=== PATIENT | female | born 1990 | race Caucasian/White ===

== ENCOUNTER 2023-02-21 11:00 | Day surgery (SDC) | payer BC ==
[~2023-02-21] VITALS: Ht 165.1 cm; Wt 117.8 kg
[~2023-02-21 11:00] MED LIST: ELDE350C PO; FAMO40TA3 PO; LR 1,000 ML IV SCH; TRI-TAB16 PO; VIT1TAB.8 PO; ceFAZolin SOD 2 GM in IV 1 EA IV ONE
[2023-02-21] MEDS ORDERED: fentaNYL 100 MCG/2 ML INJECTION As Ordered ONE (11:12)
[2023-02-21] MEDS ORDERED: LIDOCAINE 2% 100MG/5ML SDV (FOR ANES.) As Ordered ONE (11:12)
[2023-02-21] MEDS ORDERED: propofoL 200 MG/20 ML VIAL As Ordered ONE (11:12)
[2023-02-21] MEDS ORDERED: KETOROLAC 60MG 2ML VIAL As Ordered ONE (11:12)
[2023-02-21] MEDS ORDERED: MIDAZOLAM INJ 2MG/2ML VIAL As Ordered ONE (11:13)
[2023-02-21] MEDS ORDERED: LIDOCAINE 2% MDV 20ML VIAL As Ordered ONE (13:24)
[2023-02-21] MEDS ORDERED: GENTAMICIN SULF 80MG/2ML VIAL As Ordered ONE (13:24)
[2023-02-21 15:33] VITALS: BP 133/78; TEMP 97.9; O2SAT 97
== END 2023-02-21 15:40 | disposition home or self-care (01) ==
LOC: M SDC 11:00
PROVIDERS: ATTEND Podiatrist
DX: S92.354A Nondisplaced fracture of fifth metatarsal bone, right foot, initial encounter for closed fracture (principal); F17.210 Nicotine dependence, cigarettes, uncomplicated; X58.XXXA Exposure to other specified factors, initial encounter; Y93.9 Activity, unspecified; Y92.9 Unspecified place or not applicable; K21.9 Gastro-esophageal reflux disease without esophagitis; Z79.899 Other long term (current) drug therapy; Z88.8 Allergy status to other drugs, medicaments and biological substances
CPT/HCPCS: 28200; 28322; 73630; 81025; 88304; 88311; C1713; J0665; J0690; J1100; J1580; J1885; J2250; J3010

== ENCOUNTER 2023-09-26 07:03 | Day surgery (SDC) | payer BC ==
[~2023-09-26] VITALS: Ht 165.1 cm; Wt 110.7 kg
[~2023-09-26 07:03] MED LIST changes: -LR 1,000 ML IV SCH; -ceFAZolin SOD 2 GM in IV 1 EA IV ONE
[2023-09-26] MEDS: LR 1,000 ML IV SCH ×2 (08:02→10:46)
[2023-09-26] MEDS ORDERED: KETOROLAC 60MG 2ML VIAL As Ordered ONE (08:24)
[2023-09-26] MEDS ORDERED: propofoL 200 MG/20 ML VIAL As Ordered ONE (08:24)
[2023-09-26] MEDS ORDERED: fentaNYL 250 MCG/5 ML INJECTION As Ordered ONE (08:24)
[2023-09-26] MEDS ORDERED: MIDAZOLAM INJ 2MG/2ML VIAL As Ordered ONE (08:24)
[2023-09-26] MEDS ORDERED: SUGAMMADEX SODIUM 500 MG/5 ML VIAL (BRIDION) As Ordered ONE (08:24)
[2023-09-26] MEDS ORDERED: ONDANSETRON 4MG 2ML VIAL As Ordered ONE (08:24)
[2023-09-26] MEDS ORDERED: LIDOCAINE 2% 100MG/5ML SDV (FOR ANES.) As Ordered ONE (08:24)
[2023-09-26] MEDS ORDERED: ROCURONIUM BROMIDE 50MG/5ML VIAL As Ordered ONE (08:24)
[2023-09-26] MEDS ORDERED: dexmedeTOMIDine (4MCG/ML)200MCG/50ML BTL (PRECEDEX) As Ordered ONE (09:38)
[2023-09-26] MEDS ORDERED: SEVOFLURANE INHAL SOLN 250 ML BTL As Ordered ONE (09:38)
[2023-09-26] MEDS: ceFAZolin SOD 2 GM in IV 1 EA IV ONE (09:49)
[2023-09-26] MEDS ORDERED: METOCLOPRAMIDE INJ 10MG/2ML VIAL As Ordered ONE (10:04)
[2023-09-26] MEDS ORDERED: ACETAMINOPHEN 1000MG 100ML IV BAG As Ordered ONE (10:11)
[2023-09-26] MEDS ORDERED: fentaNYL 100 MCG/2 ML INJECTION IV PRN (10:30)
[2023-09-26] MEDS ORDERED: ONDANSETRON 4MG 2ML VIAL IV PRN (10:30)
[2023-09-26] MEDS: HYDROMORPHONE HCL 0.5 MG/ 0.5 ML SYRINGE IV PRN (10:45)
[2023-09-26] MEDS: oxyCODONE 5MG TAB PO PRN (10:46)
[2023-09-26 11:20] VITALS: BP 108/57; TEMP 97.4; O2SAT 98
[2023-09-26] MEDS ORDERED: NS 1,000 ML IV SCH (12:20)
[2023-09-26] MEDS ORDERED: PERCOCET 5MG/325MG TAB PO PRN (12:25)
== END 2023-09-26 11:39 | disposition home or self-care (01) ==
LOC: M SDC 07:03
PROVIDERS: ATTEND Surgery
DX: K80.10 Calculus of gallbladder with chronic cholecystitis without obstruction (principal); K21.9 Gastro-esophageal reflux disease without esophagitis; Z79.899 Other long term (current) drug therapy; F17.210 Nicotine dependence, cigarettes, uncomplicated; Z88.8 Allergy status to other drugs, medicaments and biological substances
CPT/HCPCS: 47562; 81025; 88304; J0131; J0665; J0690; J1100; J1170; J1885; J2250; J2405; J2765; J3010